=== PATIENT | male | born 1950 | race Caucasian/White ===

== ENCOUNTER 2020-03-12 09:49 | Outpatient (CLI) | payer MEDICARE, SELFPAY ==
--- NOTE | ~2020-03-12 | US_ITS ---
EXAMINATION: US thyroid DATE: 03/12/2020 10:35 INDICATION: Thyroid nodule. TECHNIQUE: Multiple ultrasound images of the thyroid were obtained. COMPARISON: Ultrasound 03/15/2019 FINDINGS: The right thyroid lobe measures 4.5 x 1.7 x 2.1 cm. The left thyroid lobe measures 3.9 x 1.4 x 1.3 c m. In the left thyroid lobe, there is a 5 mm solid, hypoechoic, qwrjs-cffs-brkp nodule with ill-defi olu margin without echogenic foci (TI-RADS TR4). In the right thyroid lobe, there is a 1.8 cm mixed c ystic and solid, hyperechoic, ffcun-xmvu-qkxh nodule with smooth margin without echogenic foci (TI-RA DS TR2). IMPRESSION: 1. Stable thyroid nodules, likely not clinically significant. No follow-up is needed. Reviewed, dictated and finalized at location A. IMPRESSION: 1. Stable thyroid nodules, likely not clinically significant. No follow-up is n eeded.
== END 2020-03-12 09:50 | disposition home or self-care (01) ==
PROVIDERS: PCP Internal Medicine; Visit Provider Internal Medicine
DX: E04.2 Nontoxic multinodular goiter (principal)
CPT/HCPCS: 76536

== ENCOUNTER → 2021-03-09 09:02 | Outpatient (CLI) | payer MEDICARE, SELFPAY ==
--- NOTE | ~2021-03-09 | MR_ITS ---
EXAMINATION: MR brain IAC wo/w con DATE: 03/09/2021 10:11 INDICATION: Dizziness. TECHNIQUE: Magnetic resonance imaging (MRI) of the brain, brainstem, and internal auditory canals was performed without and with 15 mL MultiHance intravenous contrast. Sequences included sagittal and ax ial T1-weighted FSE, axial diffusion-weighted FS EPI, axial T2*-weighted GRE, axial T2-weighted FLAIR Propeller, axial T2-weighted Propeller, small wgpyc-jv-stxl coronal FIESTA, small fcdup-tf-dulc lópez nal T1-weighted FSE, and small xamdn-sy-djdw axial T1-weighted SPGR. Postcontrast sequences included axial T1-weighted FSE, small tonwe-sn-qous coronal T1-weighted FSE, and small tzysg-ii-xxqz axial T1- weighted SPGR. Apparent diffusion coefficient (ADC) maps were created. COMPARISON: CT neck 11/29/2016 FINDINGS: There are scattered areas of nonspecific increased T2-weighted signal intensity in the cere bral white matter, which is within normal limits for the patient's age. There are small areas of cys tic encephalomalacia in the deluna radiata of the frontal lobes bilaterally. There is no intracranial hemorrhage, acute infarction, or abnormal intracranial mass lesion. The ventricles are normal in siz e. The internal auditory canals and inner and middle ears are normal. The mastoid air cells are emelina l. There is mucosal thickening in the right frontal and right anterior ethmoid sinuses. The orbits ar e normal. IMPRESSION: 1. Small areas of chronic cystic encephalomalacia in the deluna radiata of the frontal lobes gal lindsey. Reviewed, dictated and finalized at location A. IMPRESSION: 1. Small areas of chronic cystic encephalomalacia in the deluna radiata of the frontal lobes bilaterally.
[2021-03-09 09:37] LABS: Estimated Glomerular Filt Rate 60
== END ==
PROVIDERS: PCP Internal Medicine; Visit Provider Internal Medicine
DX: R42 Dizziness and giddiness (principal)
CPT/HCPCS: 70553; A9577

== ENCOUNTER → 2021-07-31 16:22 | Outpatient (CLI) | payer MEDICARE, SELFPAY ==
--- NOTE | ~2021-07-31 | XR_ITS ---
XR chest 2V DATE: 07/31/2021 17:03 INDICATION: Chronic cough TECHNIQUE: 2 views COMPARISON: January 04, 2019 PA and lateral chest FINDINGS: Heart size is within upper normal range. No hilar or mediastinal enlargement. No pulmonary infiltrate or consolidation, pleural effusion or pulmonary vascular congestion or pneumothorax. Osteopenia. IMPRESSION: No active cardiopulmonary disease Reviewed, dictated and finalized at location A.
== END ==
PROVIDERS: PCP Internal Medicine; Visit Provider Internal Medicine
DX: R05 Cough (principal)
CPT/HCPCS: 71046

== ENCOUNTER 2022-03-24 12:45 | Outpatient (CLI) | payer MEDICARE, SELFPAY ==
--- NOTE | 2022-03-24 16:31 | WPDPFTINT ---
PFT Procedure Performed PFT Procedure Performed Spirometry with Pre/Post Bronchodilator Plethysmography (Lung Vol) Diffusing Cap (DLCO) Flow Vol Loop PFT Interpretation This is a pulmonary function test with pre and post-bronchodilator spirometry, plethysmography and diffusing capacity. The test was performed and results interpreted in accordance with the 2019 and 2005 ATS/ERS Task Force guidelines respectively using the Global Lung Function Initiative-2012 reference equations. Patient demonstrated good effort and cooperation. Reproducibility criteria were met. The quality of the pre bronchodilator spirometry maneuver was Grade A and post bronchodilator spirometry maneuver was Grade A. Findings: Spirometry: The contour the inspiratory and expiratory flow tracing are normal. The pre bronchodilator FVC is 4.21 L, 107% predicted. The pre bronchodilator FEV1 is 3.31 L, 111% predicted. The pre bronchodilator FEV1: FVC ratio 79%. The post bronchodilator FVC is 4.06 L, representing a 4% decrease. The post bronchodilator FEV1 is 3.37 L, representing a 2% increase. The post bronchodilator FEV1: FVC ratio was 83%. Plethysmography: The total lung capacity 7.18 L, 108% predicted. The functional residual capacity is 4.35 L, 124% predicted. The residual volume is 2.97 L, 126% predicted. Diffusing capacity: The diffusion capacity unadjusted for hemoglobin and carboxyhemoglobin is 27.7, 111% predicted. Diffusing capacity adjusted for alveolar volume is 4.95, 123% predicted. Impression: The spirometry is normal without evidence of an obstructive abnormality. There is no significant improvement after inhaling a single dose of albuterol. The lung volumes are normal. The diffusing capacity is normal. There are no prior studies for comparison
== END 2022-03-24 12:46 | disposition home or self-care (01) ==
PROVIDERS: PCP Internal Medicine; Visit Provider Internal Medicine
DX: R05.9 Cough, unspecified (principal)
CPT/HCPCS: 94060; 94726; 94729

== ENCOUNTER 2022-04-19 13:33 | Outpatient (CLI) | payer MEDICARE, SELFPAY ==
--- NOTE | 2022-04-19 13:41 | ECG_ITS ---
Measurements Intervals [place] Rate: 68 P: 30 AK: 166 QRS: -1 QRSD: 108 T: 22 QT: 405 QTc: 431 Interpretive Statements SINUS RHYTHM WITH OCCASIONAL VENTRICULAR PREMATURE COMPLEXES NO PREVIOUS ECG AVAILABLE FOR COMPARISON Electronically Signed On 04-19-2022 15:39:14 CDT by Sterling Dawkins MD
[2022-04-19 14:17] LABS: Anion Gap 5 mmol/L (8-16); Blood Urea Nitrogen 21 mg/dL (9-20); Calcium 8.9 mg/dL (8.4-10.2); Carbon Dioxide 32 mmol/L (22-30); Chloride 100 mmol/L (98-107); Estimated Glomerular Filt Rate > 60; Glucose 116 mg/dL (65-110); Potassium 3.6 mmol/L (3.4-5.0); Sodium 137 mmol/L (137-145)
== END 2022-04-19 13:34 | disposition home or self-care (01) ==
PROVIDERS: Anesthesiology; PCP Internal Medicine; Visit Provider Urology
DX: Z51.81 Encounter for therapeutic drug level monitoring (principal); I10 Essential (primary) hypertension; Z01.818 Encounter for other preprocedural examination
CPT/HCPCS: 36415; 80048; 93005

== ENCOUNTER 2022-04-21 00:03 | Day surgery (SDC) | payer MEDICARE, SELFPAY ==
[2022-04-07 10:38] VITALS: BMI 25.4
--- NOTE | 2022-04-07 11:01 | PC.NURSE ---
Report to the Outpatient Waiting Room, entrance under the green pavilion located off [facility], at time __10:00AM on date __04/21/22 . OR Time: __12:00PM . - You and your visitor will be asked a series of questions to screen for COVID 19 for your protection. - Only one visitor is allowed at this time. - The patient visitor is requested to leave or wait in car when not with patient. - A mask is required within the hospital. Patients may have clear liquids (water, carbonated beverages, clear teas, apple juice) until 3 hours prior to surgery with a maximum of 20 ounces. - No food from midnight until time of surgery - Infants may have breast milk until 4 hours before surgery, infant formula 6 hours prior to surgery. - Children will be allowed to drink immediately following surgery. If applicable, please bring a bottle or sippy cup to assist with drinking. Juice, water, soda, and popsicles are readily available. For infants on formula, please bring formula the day of surgery. Pacifiers are allowed. Take the following medications with a SIP of water the morning of surgery: ____NONE Medications to discontinue per physician ___HOLD ALL VITAMINS/SUPPLEMENTS 7 DAYS PRE-OP PER DR LOZA Date to take last dose__04/14/22 Please no make-up, nail sinhala, hairspray, perfume, deodorant, or body powder the day of surgery. No jewelry (including any body piercings) or valuables the day of surgery, leave them at home. Please take a shower or bath the night before, or the morning of, surgery with an antibacterial soap. Wear comfortable, loose fitting clothing. Children are encouraged to wear pajamas. - Jewelry must be removed prior to entering the operating room. Rings and piercings that are not removed may be cut off. - The hospital will not accept responsibility for valuables. - Please leave all valuables, including medications, at home the day of surgery. If you are going home after surgery, a licensed sales route driver must drive you home. - NO public transportation without another adult. - We recommend that an adult stay with you for 24 hours following discharge. - We also recommend that you do not drive, make important decision, drink alcoholic beverages, or take any drugs that were not prescribed by your health care provider for at least 24 hours after your discharge time. For Pediatric surgeries, we recommend two adults accompany the child home (only one inside the building at this time). Follow any additional instructions given to you from your surgeon. If you or anyone in your household have experienced Covid symptoms in the past week, please notify your surgeon or the nurse liaison at the phone number below for possible testing. Telephone instructions given to __PATIENT and asked if any additional questions and then verbalized understanding. Patient advised to call surgeon office or pre surgery nurse liaison [phone] if any additional questions.
--- NOTE | 2022-04-20 13:42 | WPDANESEPPF ---
Anes - Initial Pre Proc Eval Procedure: Operation Date: 04/21/22 12:00 Proposed Procedures p Urolift - Santos Rose MD Date/Time: 04/20/22 13:42 Surgeon: Santos Rose MD Pre Op Diagnosis: BPH Patient Data Age: 71 Gender: M Height: 1.73 m Weight: 76 kg Allergies Allergy/AdvReac Type Severity Reaction Status Date / Time No Known Allergies Allergy Unverified 04/07/22 10:37 Home Medications Medication Instructions Recorded Confirmed Type calcium carbonate 500 mg calcium 1,000 mg PO DAILY 04/07/22 04/07/22 History (1,250 mg) chewable tablet (Calcium 500) guaifenesin 1,200 mg 1,200 mg PO BID 04/07/22 04/07/22 History tablet,extended release,12 hr hydrochlorothiazide 25 mg tablet 25 mg PO QAM 04/07/22 04/07/22 History lisinopril 20 mg tablet 20 mg PO BID 04/07/22 04/07/22 History magnesium 250 mg tablet 250 mg PO DAILY 04/07/22 04/07/22 History omega-3 fatty acids-vitamin E 2 cap PO QAM 04/07/22 04/07/22 History 1,000 mg capsule rosuvastatin 5 mg tablet 5 mg PO HS 04/07/22 04/07/22 History testosterone 20.25 mg/1.25 gram 3 pump topical DAILY 04/07/22 04/07/22 History (1.62 %) transdermal gel pump zolpidem 5 mg tablet 2.5 mg PO HS PRN Insomnia 04/07/22 04/07/22 History Patient hx anesthesia problems: none Family hx anesthesia problems: none Results Review: All pre-operative results and documents have been reviewed as part of the pre-operative evaluation. [facility] Past Medical History Medical History (Updated 04/20/22 @ 13:44 by Anthony Ruvalcaba MD) Benign essential hypertension BPH (benign prostatic hyperplasia) HTN (hypertension) Hypercholesterolemia JENNIFER (obstructive sleep apnea) PVCs (premature ventricular contractions) Family History Family History (Updated 07/11/14 @ 07:13 by DOCTOR UNKNOWN) Mother Hypertension Father Hypertension Malignant neoplasm of prostate Social History Social History Smoking status: Never smoker Smoking end date: 11/14/69 Alcohol intake: current Drinks per week: 6 Substance use: never Living arrangements: with family Additional living arrangements comments: Spiritual care concerns: No Anes - Eval Final PreProcedure Day of Procedure 04/20/22 13:42 Patient weight: normal Heart: regular rate and rhythm Lungs: clear to auscultation and normal air movement Airway: Mallampati scale class II Neurological: alert and oriented Last oral intake: >/= 8 hours ASA classification: III Emergent: no Anesthetic plan: proceed Anesthesia type and monitoring: general GIVS and LMA Results Review: All pre-operative results and documents have been reviewed as part of the pre-operative evaluation. Informed Consent: The patient's anesthetic plan and its attendant risks and benefits were discussed with the patient/family/POA. Questions were solicited and answers provided to the satisfaction of the patient/family/POA.
[2022-04-21] MEDS: ACETAMINOPHEN 500 MG TABLET 1000 MG PO (10:45)
[2022-04-21 10:50] VITALS: BP 126/78; PULSE 68; RESP 14; TEMP 36.3; O2SAT 100
[2022-04-21] MEDS: LACTATED RINGERS 1,000 ML 30 ML IV CONT ×2 (10:55→13:50)
--- NOTE | 2022-04-21 12:18 | PM.IMHP ---
H&P: HPI History of Present Illness Date/Time: 04/21/22 12:18 Chief Complaint: BPH Review of Systems Review of Systems: no significant [facility] Past Medical History Medical History (Updated 04/20/22 @ 13:44 by Anthony Ruvalcaba MD) Benign essential hypertension BPH (benign prostatic hyperplasia) HTN (hypertension) Hypercholesterolemia JENNIFER (obstructive sleep apnea) PVCs (premature ventricular contractions) Family History Family History (Updated 07/11/14 @ 07:13 by DOCTOR UNKNOWN) Mother Hypertension Father Hypertension Malignant neoplasm of prostate Social History Social History Smoking status: Never smoker Smoking end date: 11/14/69 Alcohol intake: current Drinks per week: 6 Substance use: never Living arrangements: with family Additional living arrangements comments: Spiritual care concerns: No Meds Home Medications and Allergies Home Medications Medication Instructions Recorded Confirmed Type calcium carbonate 500 mg calcium 1,000 mg PO DAILY 04/07/22 04/07/22 History (1,250 mg) chewable tablet (Calcium 500) guaifenesin 1,200 mg 1,200 mg PO BID 04/07/22 04/07/22 History tablet,extended release,12 hr hydrochlorothiazide 25 mg tablet 25 mg PO QAM 04/07/22 04/07/22 History lisinopril 20 mg tablet 20 mg PO BID 04/07/22 04/07/22 History magnesium 250 mg tablet 250 mg PO DAILY 04/07/22 04/07/22 History omega-3 fatty acids-vitamin E 2 cap PO QAM 04/07/22 04/07/22 History 1,000 mg capsule rosuvastatin 5 mg tablet 5 mg PO HS 04/07/22 04/07/22 History testosterone 20.25 mg/1.25 gram 3 pump topical DAILY 04/07/22 04/07/22 History (1.62 %) transdermal gel pump zolpidem 5 mg tablet 2.5 mg PO HS PRN Insomnia 04/07/22 04/07/22 History Allergies Allergy/AdvReac Type Severity Reaction Status Date / Time No Known Allergies Allergy Unverified 04/07/22 10:37 Vital Signs Vital Signs - 24 hr 04/21/22 10:50 Temperature 36.3 C L Pulse Rate 68 Respiratory Rate 14 Blood Pressure 126/78 Pulse Oximetry 100 Oxygen Delivery Room Air Exam Narrative: awake, alert, no distress unlabored breathing Assessment and Plan Assessment and plan (1) BPH (benign prostatic hyperplasia): Code(s): N40.0 - Benign prostatic hyperplasia without lower urinary tract symptoms Status: Acute Plan Plan Urolift. Risks, benefits, alternatives discussed. pt agrees to proceed
--- NOTE | 2022-04-21 12:19 | WPDHPUPDATE1 ---
History and Physical Update Update Date/Time: 04/21/22 12:19 History and Physical has been reviewed, including an updated exam of the patient. There are NO changes in the patient's condition. Risks, benefits, and alternatives have been discussed and questions answered. Patient agrees to proceed with procedure.
[2022-04-21] MEDS: ceFAZolin 2 GM/D5W 50 ML 2 GM/50 ML BAG IVPB (12:23)
--- NOTE | 2022-04-21 13:12 | W.PM.PROC2 ---
Procedure Note - Detailed Date of Procedure 04/21/22 Pre-op Diagnosis BPH Post-op Diagnosis Same Procedure Performed Urolift Surgeon Santos Rose MD Description of Procedure Informed consent was obtained. Patient taken the operating. Was given preoperative IV antibiotics. He was induced with a MAC anesthetic. A 20F cystoscope was inserted into the bladder. The cystoscopy bridge was replaced with a UroLift delivery device. The first treatment site was the patient's left side approximately 1.5cm distal to the bladder neck. The distal tip of the delivery device was then angled laterally approximately 20 degrees at this position to compress the lateral lobe. The trigger was pulled, thereby deploying a needle containing the implant through the prostate. The needle was then retracted, allowing one end of the implant to be delivered to the capsular surface of the prostate. The implant was then tensioned to assure capsular seating and removal of slack monofilament. The device was then angled back toward midline and slowly advanced proximally until cystoscopic verification of the monofilament being centered in the delivery bay. The urethral end piece was then affixed to the monofilament thereby tailoring the size of the implant. Excess filament was then severed. The delivery device was then re-advanced into the bladder. The delivery device was then replaced with cystoscope and bridge and the implant location and opening effect was confirmed cystoscopically. The same procedure was then repeated on the right side, and two additional implants were delivered just proximal to the veru montanum, again one on right and one on left side of the prostate, following the same technique. One attempt to place implant on the patient's left side resulted in a bone strike, the implant was not deployed. After the 4 initial implants were placed, then revealed a persistent area of obstruction, on the patient's right apex. One additional implant was delivered in the right side just proximal to the Carolee prostate. A final cystoscopy was conducted first to inspect thelocation and state of each implant and second, to confirm the presence of a continuous anterior channel was present through the prostatic urethra with irrigation flow turned off. The bladder was then filled with 150 cc irrigation fluid to assist the patient in void trial after the procedure. The patient was taken to recovery room stable condition. Pathology None sent Complications No immediate complications Condition Stable Disposition PACU
[2022-04-21 13:23] VITALS: BP 113/69; PULSE 60; RESP 16; O2SAT 97
[2022-04-21 13:50] VITALS: BP 169/78; PULSE 50; RESP 16
[2022-04-21 14:20] VITALS: BP 169/82; PULSE 57; RESP 16
[2022-04-21 14:50] VITALS: BP 146/71; PULSE 56; RESP 16
== END 2022-04-21 15:04 | disposition home or self-care (01) ==
PROVIDERS: PCP Internal Medicine; Visit Provider Urology
PROC: 0T7D8DZ Dilation of Urethra with Intraluminal Device, Via Natural or Artificial Opening Endoscopic (ICD-10-PCS; CPT 52441; principal; 2022-04-21 12:00)
DX: N40.1 Benign prostatic hyperplasia with lower urinary tract symptoms (principal); I10 Essential (primary) hypertension; E78.00 Pure hypercholesterolemia, unspecified; G47.33 Obstructive sleep apnea (adult) (pediatric); I49.3 Ventricular premature depolarization
CPT/HCPCS: C9740; 36415; 51702; 80048; 81001; 87086; 93005; 99283; A9270; J0690; J2704; J3010; J7120; L8699

== ENCOUNTER 2022-04-21 18:01 | Emergency (ER) | payer MEDICARE, SELFPAY ==
[2022-04-21 18:05] VITALS: BP 165/93; PULSE 63; RESP 18; TEMP 36.1; O2SAT 99
--- NOTE | 2022-04-21 18:46 | ED.MALEGU ---
HPI - Male Genitourinary General Chief complaint: Urogenital-Male Stated complaint: unable to urinate Time Seen by Provider: 04/21/22 18:21 Source: patient Mode of arrival: ambulatory Limitations: no limitations History of Present Illness HPI Narrative: This is a 71-year-old male that presents to the emergency department for urinary retention. Reports he had a procedure this morning for BPH. He was able to urinate a little after the procedure. Since he got home he has not been able to urinate at all. Dr. Rose prompted him to be seen in the ER for likely William catheter placement. Patient has had William placed and is feeling much better. Denies fever or vomiting. Related Data Home Medications Medication Instructions Recorded Confirmed calcium carbonate 500 mg calcium 1,000 mg PO DAILY 04/07/22 04/07/22 (1,250 mg) chewable tablet (Calcium 500) guaifenesin 1,200 mg 1,200 mg PO BID 04/07/22 04/07/22 tablet,extended release,12 hr hydrochlorothiazide 25 mg tablet 25 mg PO QAM 04/07/22 04/07/22 lisinopril 20 mg tablet 20 mg PO BID 04/07/22 04/07/22 magnesium 250 mg tablet 250 mg PO DAILY 04/07/22 04/07/22 omega-3 fatty acids-vitamin E 2 cap PO QAM 04/07/22 04/07/22 1,000 mg capsule rosuvastatin 5 mg tablet 5 mg PO HS 04/07/22 04/07/22 testosterone 20.25 mg/1.25 gram 3 pump topical DAILY 04/07/22 04/07/22 (1.62 %) transdermal gel pump zolpidem 5 mg tablet 2.5 mg PO HS PRN Insomnia 04/07/22 04/07/22 Allergies Allergy/AdvReac Type Severity Reaction Status Date / Time No Known Allergies Allergy Verified 04/21/22 18:58 Review of Systems Review of Systems: CONSTITUTIONAL: Denies fever CARDIOVASCULAR: Denies chest pain, palpitations RESPIRATORY: Denies dyspnea. GENITOURINARY: Reports hematuria. Denies dysuria All systems reviewed & are unremarkable except as noted in HPI and below PMFSH Past Medical History Medical History (Updated 04/21/22 @ 19:27 by Annemarie Padron PA-C) Benign essential hypertension BPH (benign prostatic hyperplasia) HTN (hypertension) Hypercholesterolemia JENNIFER (obstructive sleep apnea) PVCs (premature ventricular contractions) Family History Family History (Updated 07/11/14 @ 07:13 by DOCTOR UNKNOWN) Mother Hypertension Father Hypertension Malignant neoplasm of prostate Social History Social History Smoking status: Never smoker Smoking end date: 11/14/69 Alcohol intake: current Drinks per week: 6 Substance use: never Additional living arrangements comments: Spiritual care concerns: No Exam Narrative: GENERAL: Well-appearing, well-nourished, and in no acute distress. HEAD: Normocephalic, atraumatic. EYES: EOMI. CHEST: Clear to auscultation. No respiratory distress. No wheezes rales or rhonchi HEART: Regular rate and rhythm. No murmur heard. Normal peripheral pulses. ABDOMEN: Soft, nontender, nondistended, normal active bowel sounds. EXTREMITIES: Normal range of motion. No edema. SKIN: Warm, dry, no rash. NEURO: No focal deficits. Alert and oriented x3. PSYCH: Normal mood and affect Course Consultations Consultation #1: I spoke with Dr. Rose about patient who reports he should follow-up in clinic early next week. Patient states urine is draining and is noted to be bloody, which Dr. Rose said is to be expected. Date: 04/21/22 Vital Signs Vital signs: Vital Signs Temperature 97.0 F L 04/21/22 18:05 Pulse Rate 63 04/21/22 18:05 Respiratory Rate 18 04/21/22 18:05 Blood Pressure 165/93 H 04/21/22 18:05 Pulse Oximetry 99 04/21/22 18:05 Oxygen Delivery Room Air 04/21/22 18:05 Temperature 97.0 F L 04/21/22 18:05 Pulse Rate 53 L 04/21/22 19:52 Respiratory Rate 16 04/21/22 19:52 Blood Pressure 129/74 04/21/22 19:52 Pulse Oximetry 100 04/21/22 19:52 Oxygen Delivery Room Air 04/21/22 18:05 MDM - Male Genitourinary MDM Narrative Medical decision making narrative: Patient pres
[2022-04-21 19:12] LABS: RBC Urine >75 /hpf (0-2); WBC Urine >75 /hpf
[2022-04-21 19:14] LABS: Appearance Urine Cloudy (Clear); Color Urine Red (Yellow); Glucose Urine UA Negative (Negative); Protein Urine 1+ mg/dL (Negative); Specific Grav Ur 1.015 (1.001-1.035)
[2022-04-21 19:15] LABS: Bilirubin Urine Negative (Negative); Blood Urine 3+ (Negative); Ketones Urine Negative (Negative); Nitrate Urine Negative (Negative); Urobilinogen Urine 0.2 mg/dL (<2.0)
[2022-04-21 19:16] LABS: Add Urine Microscopic? YES; Leukocyte Esterase Ur 2+ LEU/UL (Negative)
--- NOTE | 2022-04-21 19:16 | PC.NURSE ---
Patient report given to ALE Trujillo. All questions answered and care of patient transferred.
[2022-04-21 19:19] VITALS: BP 141/83; PULSE 59; RESP 16; O2SAT 98
--- NOTE | 2022-04-21 19:19 | PC.NURSE ---
Report received from Mavis RN and care of pt assumed at this time.
[2022-04-21 19:52] VITALS: BP 129/74; PULSE 53; RESP 16; O2SAT 100
== END 2022-04-21 19:59 | disposition home or self-care (01) ==
PROVIDERS: Physician Assistant; Emergency Provider General Practice; PCP Urology
DX: N99.89 Other postprocedural complications and disorders of genitourinary system (principal); R33.8 Other retention of urine; I10 Essential (primary) hypertension; E78.00 Pure hypercholesterolemia, unspecified; G47.33 Obstructive sleep apnea (adult) (pediatric); Z87.891 Personal history of nicotine dependence
CPT/HCPCS: 51702; 81001; 87086; 99283

== ENCOUNTER → 2022-10-06 14:30 | Outpatient (CLI) | payer MEDICARE, SELFPAY ==
--- NOTE | ~2022-10-06 | DEXA_ITS ---
Bone Density Report Name: POLA CHILEL Age: 72 Sex: Male Ethnicity: White Date of : 1950 Indication: screening for osteoporosis; prior fracture; Referring Provider: SHENG NGUYEN Study: Bone densitometry was performed. Exam Date: October 06, 2022 Accession number: [id number] Bone Density: Region BMD T-score Z-score Classification AP Spine (L1-L4) 0.849 -2.2 -1.2 Osteopenia Femoral Neck (Left) 0.652 -2.0 -0.8 Osteopenia Total Hip (Left) 0.765 -1.8 -1.0 Osteopenia Femoral Neck (Right) 0.670 -1.9 -0.7 Osteopenia Total Hip (Right) 0.798 -1.6 -0.8 Osteopenia Total Hip Mean 0.782 -1.7 -0.9 Osteopenia World Health Organization criteria for BMD impression classify patients as: Normal (T-score at or above -1.0), Osteopenia (T-score between -1.0 and -2.5), or Osteoporosis (T-score at or below -2.5). 10-year Fracture Risk(1): Major Osteoporotic Fracture 13% Hip Fracture 3.7% Reported Risk Factors: [place] (), Neck BMD=0.652, BMI=25.7, previous fracture (1) FRAX(R) Version 3.08. Fracture probability calculated for an untreated patient. Fracture probability may be lower if the patient has received treatment. Clinical Information Provided by Patient: Has had a low trauma fracture Has used the following medications: Vitamin D, Calcium Patient maximum height was 68 Does not regularly consume dairy products Drinks caffeinated beverages Impression: The patient has low bone mass, based on the Total Spine T-score. The patient has an estimated ten-year risk of hip fracture of 3.7% and an estimated ten-year risk of major fracture of 13%, based on the WHO FRAX algorithm. The patient has risk factors, including: previous fracture. Discussion: BONE DENSITY IS LOW AT ONE OR MORE SKELETAL SITES. THE PATIENT'S BMD AND CLINICAL RISK FACTORS CONTRIBUTE TO THIS PATIENT'S INCREASED RISK OF FRACTURE. This patient's lowest T-score is low at one or more skeletal sites. It meets the World Health Organization's (WHO) criteria for ?low bone mass? (T-score between -1.0 and -2.5). The patient's 10-year risk of hip fracture as calculated by FRAX exceeds the threshold where pharmacological therapy is recommended by the National Osteoporosis Foundation (NOF). However, all treatment decisions require clinical judgment and consideration of individual patient factors, including patient preferences, comorbidities, previous drug use, risk factors not captured in the FRAX model (e.g., frailty, falls, vitamin D deficiency, increased bone turnover, interval significant decline in bone density) and possible under or overestimation of fracture risk by FRAX. The patient should follow a healthful lifestyle (good nutrition with adequate calcium and vitamin D, and appropriate weight-bearing exercise). Follow-Up: Consider repeating this
== END ==
PROVIDERS: PCP Internal Medicine; Visit Provider Internal Medicine
DX: M85.88 Other specified disorders of bone density and structure, other site (principal); M85.851 Other specified disorders of bone density and structure, right thigh; M85.852 Other specified disorders of bone density and structure, left thigh
CPT/HCPCS: 77080

== ENCOUNTER 2023-03-17 12:45 | Outpatient (CLI) | payer MEDICARE, SELFPAY ==
--- NOTE | 2023-03-17 | ECHO_ITS ---
Patient Info Name: Uziel Haji Age: 72 years : 1950 Gender: Male Ht: 68 in Wt: 164 lbs BSA: 1.90 m2 HR: 68 bpm BP: 142 / 82 mmHg Heart Rhythm: Sinus Rhythm Technical Quality: Good Exam Date: 03/17/2023 1:21 PM Exam Location: [facility] Patient Status: Outpatient Admit Date: 03/17/2023 Staff Ordering Physician: Saima Sotelo MD Electrical Intern: Elif Fischer RDCS Attending Provider: Saima Sotelo MD Referring Physician: Ashleigh DHALIWAL; Exam Type: CA echo doppler color flow Study Info Indications - ATRIAL BIGEMINY Complete two-dimensional, color flow and Doppler transthoracic echocardiogram is performed. Summary 1. Complete two-dimensional, color flow and Doppler transthoracic echocardiogram is performed. 2. Left ventricular chamber dimension is mildly enlarged. 3. Left ventricular systolic function is normal, estimated at 55-60%. 4. There is mild concentric increased left ventricular wall thickness. 5. The left ventricular diastolic function is grade II diastolic dysfunction. 6. E/e' 10 is mildly elevated. 7. Left atrial chamber dimension is mildly enlarged. 8. Right atrial chamber dimension is mildly enlarged. 9. There is mild mitral valve regurgitation. 10. There is trace tricuspid valve regurgitation. 11. No pulmonary hypertension, estimated pulmonary arterial systolic pressure is 32 mmHg. 12. There is trace pulmonic regurgitation. 13. Normal inferior vena cava with <50% collapse upon inspiration consistent with elevated right atrial pressure, 10 mmHg. Left Ventricle E/e' 10 is mildly elevated. Left ventricular chamber dimension is mildly enlarged. Left ventricular systolic function is normal, estimated at 55-60%. There is mild concentric increased left ventricular wall thickness. The left ventricular diastolic function is grade II diastolic dysfunction. Right Ventricle Right ventricular systolic function is normal and with normal TAPSE 2.2 cm. Right ventricular chamber dimension is normal. Left Atria Left atrial chamber dimension is mildly enlarged. Right Atria Right atrial chamber dimension is mildly enlarged. Aortic Valve The aortic valve is trileaflet. There is no aortic valve stenosis. There is no aortic valve regurgitation. Pulmonic Valve There is trace pulmonic regurgitation. Mitral Valve There is no mitral valve stenosis. There is mild mitral valve regurgitation. Tricuspid Valve There is trace tricuspid valve regurgitation. No pulmonary hypertension, estimated pulmonary arterial systolic pressure is 32 mmHg. Pericardium/Pleural There is no pericardial effusion. Inferior Vena Cava Normal inferior vena cava with <50% collapse upon inspiration consistent with elevated right atrial pressure, 10 mmHg. Aorta The aortic root size at the sinus of Valsalva is normal. Left Ventricular Outflow Tract Name Value Normal LVOT 2D LVOT Diameter 2.1 cm LVOT Doppler LVOT Peak Gradient 3 mmHg LVOT Mean Gradient 1 mmHg LVOT VTI 24 cm LVOT VTI/AV VTI Ratio 0.7 LVOT Stroke Volume 83 ml LVOT CO
== END 2023-03-17 12:46 | disposition home or self-care (01) ==
PROVIDERS: PCP Internal Medicine; Visit Provider Internal Medicine
DX: I49.8 Other specified cardiac arrhythmias (principal); I49.3 Ventricular premature depolarization; I34.0 Nonrheumatic mitral (valve) insufficiency
CPT/HCPCS: 93306

== ENCOUNTER → 2023-03-18 09:18 | Outpatient (CLI) | payer MEDICARE, SELFPAY ==
--- NOTE | ~2023-03-18 | CT_ITS ---
CT scan of the Neck Technique: 2.5 mm axial scans were obtained through the neck after intravenous administration of 75 c c Omnipaque 350. Coronal and sagittal reconstructions of the neck were obtained. Dose reduction techn ique was used on this scan by utilizing automated exposure control and iterative reconstruction techn ique. The dose-length product (DLP) was 385.79 mGy-cm. Clinical History: GERD, neck pain COMPARISON: 11/29/2016 Findings: Hypodense right thyroid lobe nodule is increased in size since 2017, now measuring 2.5 cm i n diameter. There is no evidence of any significant cervical lymphadenopathy. Several small, nonenlarged jugulo- digastric and posterior cervical lymph nodes are noted bilaterally. Parapharyngeal spaces appear norm al bilaterally. The parotid and submandibular glands appear normal. The pharyngeal mucosal spaces appear normal. No soft tissue masses are seen in the neck. The thyroid gland appears normal. Images of the lung apices reveal no abnormalities. Impression: 2.5 cm hypodense right thyroid lobe nodule, as detailed above. Based on prior thyroid ultrasound from 03/12/2020, this is consistent with a benign nodule. Reviewed, dictated and finalized at [facility]. Impression: 2.5 cm hypodense right thyroid lobe nodule, as detailed above. Based on prior t hyroid ultrasound from 03/12/2020, this is consistent with a benign nodule.
[2023-03-18 09:39] LABS: Estimated Glomerular Filt Rate > 60
== END ==
PROVIDERS: PCP Internal Medicine; Visit Provider Otolaryngology
DX: K21.9 Gastro-esophageal reflux disease without esophagitis (principal)
CPT/HCPCS: 70491; Q9967

== ENCOUNTER → 2023-04-18 10:50 | Outpatient (CLI) | payer MEDICARE, SELFPAY ==
--- NOTE | ~2023-04-18 | CT_ITS ---
EXAMINATION: CT IAC/mastoids BI wo con DATE: 04/18/2023 11:11 INDICATION: Right-sided mastoiditis. TECHNIQUE: Computed tomography (CT) of the temporal bones was performed without intravenous contrast. Automated exposure control and iterative reconstruction technique were employed. The dose-length pro duct was 285.41 mGy-cm. COMPARISON: Brain MRI 03/09/2021, neck CT 03/18/2023 FINDINGS: RIGHT TEMPORAL BONE: The internal auditory canal, cochlea, vestibule, semicircular canals, the cerebral aqueduct, jugular bulb, and carotid canal are normal. There is material in the tympanic cavity including adjacent to th e ossicles, at the cochlear promontory, and in Prussak space. There are erosions of scutum. There is thickening of the tympanic membrane. There is a small right mastoid effusion. LEFT TEMPORAL BONE: The internal auditory canal, cochlea, vestibule, semicircular canals, vestibular aqueduct, carotid bu lb, carotid canal, facial nerve course, and ossicles are normal. There is trace material in Prussak s pace. There are no erosions of bone. The mastoid air cells are normal. The external auditory canal is normal. IMPRESSION: 1. Material in right tympanic cavity with erosions of scutum, consistent with chronic otitis media ve rsus cholesteatoma. Reviewed, dictated and finalized at location A. IMPRESSION: 1. Material in right tympanic cavity with erosions of scutum, consistent with c hronic otitis media versus cholesteatoma.
== END ==
PROVIDERS: PCP Internal Medicine
DX: H72.91 Unspecified perforation of tympanic membrane, right ear (principal); H70.91 Unspecified mastoiditis, right ear
CPT/HCPCS: 70480

== ENCOUNTER 2024-11-27 11:43 | Outpatient (CLI) | payer MEDICARE, SELFPAY ==
--- NOTE | ~2024-11-27 | DEXA_ITS ---
Bone Density Report Name: POLA CHILEL Age: 74 Sex: Male Ethnicity: White Date of : 1950 Indication: screening for osteoporosis; Referring Provider: SHENG NGUYEN Study: Bone densitometry was performed. Exam Date: November 27, 2024 Accession number: [id number] Bone Density: Region BMD T-score Z-score Classification AP Spine(L1-L4) 0.910 -1.6 -0.6 Osteopenia Femoral Neck (Left) 0.711 -1.6 -0.3 Osteopenia Total Hip (Left) 0.888 -1.0 -0.2 Normal Femoral Neck (Right) 0.698 -1.7 -0.4 Osteopenia Total Hip (Right) 0.855 -1.2 -0.4 Osteopenia Femoral Neck Mean 0.704 -1.7 -0.3 Osteopenia Total Hip Mean 0.871 -1.1 -0.3 Osteopenia World Health Organization criteria for BMD impression classify patients as: Normal (T-score at or above -1.0), Osteopenia (T-score between -1.0 and -2.5), or Osteoporosis (T-score at or below -2.5). 10-year Fracture Risk(1): Major Osteoporotic Fracture 7.2% Hip Fracture 2.1% Reported Risk Factors: [place] (), Neck BMD=0.698, BMI=25.8 (1) FRAX(R) Version 3.08. Fracture probability calculated for an untreated patient. Fracture probability may be lower if the patient has received treatment. Clinical Information Provided by Patient: Has used the following medications: Vitamin D, Calcium Patient maximum height was 68 Onset of menses at age 1 Number of children 0 Impression: The patient has low bone mass, based on the Right Femoral Neck T-score. Discussion: BONE DENSITY IS LOW AT ONE OR MORE SKELETAL SITES. This patient's lowest T-score is low at one or more skeletal sites. It meets the World Health Organization's (WHO) criteria for ?low bone mass? (T-score between -1.0 and -2.5). The patient's 10-year risk of fracture as calculated by FRAX is less than the threshold where pharmacological therapy is recommended by the National Osteoporosis Foundation (NOF). However, all treatment decisions require clinical judgment and consideration of individual patient factors, including patient preferences, comorbidities, previous drug use, risk factors not captured in the FRAX model (e.g., frailty, falls, vitamin D deficiency, increased bone turnover, interval significant decline in bone density) and possible under or overestimation of fracture risk by FRAX. The patient should follow a healthful lifestyle (good nutrition with adequate calcium and vitamin D, and appropriate weight-bearing exercise). Follow-Up: Consider repeating this study in 2 to 3 years to reassess this patient's status, or sooner if there is some new clinical indication. Reported by: ANCELMO on 11/27/2024 12:18:00 PM. Reviewed, dictated and finalized at location A.
== END 2024-11-27 11:44 | disposition home or self-care (01) ==
LOC: CHSIMG 11:44
PROVIDERS: PCP Internal Medicine; Visit Provider Internal Medicine
DX: M85.88 Other specified disorders of bone density and structure, other site (principal)
CPT/HCPCS: 77080

== ENCOUNTER 2025-01-22 13:56 | Outpatient (CLI) | payer MEDICARE, SELFPAY ==
--- NOTE | ~2025-01-22 | US_ITS ---
EXAMINATION: US thyroid DATE: 01/22/2025 14:13 INDICATION: Thyroid nodule. TECHNIQUE: Multiple ultrasound images of the thyroid were obtained. COMPARISON: Ultrasound 03/12/2020 FINDINGS: The right thyroid lobe measures 4.6 x 2.1 x 1.4 cm. The left thyroid lobe measures 3.6 x 1.3 x 1.2 c m. In the right thyroid lobe, there is a 7 mm solid, hypoechoic, wider than tall nodule with smooth margin and macrocalcification (TI-RADS TR4). IMPRESSION: 1. Small thyroid nodule, likely not clinically significant. No follow-up is needed. Reviewed, dictated and finalized at location B. IMPRESSION: 1. Small thyroid nodule, likely not clinically significant. No follow-up is nee ded.
== END 2025-01-22 13:57 | disposition home or self-care (01) ==
LOC: GOSHIMG 13:56
PROVIDERS: PCP Internal Medicine; Visit Provider Internal Medicine
DX: E04.1 Nontoxic single thyroid nodule (principal)
CPT/HCPCS: 76536

== ENCOUNTER 2025-05-16 01:47 | Day surgery (SDC) | payer MEDICARE, SELFPAY ==
[2025-04-26 10:59] VITALS: BMI 25.5
--- OUTSIDE RECORDS SUMMARY | 2025-05-16 01:50 | XMS_ITS | Clinical Summary ---
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 Gender Identity Not on file Sexual Orientation Not on file Plan of Treatment Health Maintenance Due Date Last Done Comments DTAP/TDAP/TD VACCINES (1 - Tdap) 1969 COLORECTAL SCREENING 1995 Colorectal Cancer Screening 1995 FIT-DNA Q 3 years 1995 FIT/FOBT Q 1 year 1995 Flex Sig/CT Colonography Q 5 years 1995 PNEUMOCOCCAL VACCINE 50+ YEARS (1 of 1 - PCV) 07/04/20 00 ZOSTER VACCINE (1 of 2) 2000 INFLUENZA VACCINE (#1) 2024 RSV VACCINE (60+ or ) (1 - 1-dose 75+ series) 2025 Care Teams Tax Senior Associate Relationship Specialty Start Date End Date Adelfo Rowland MD [address] [place] [address] PCP - General 09/07/05
--- OUTSIDE RECORDS SUMMARY | 2025-05-16 01:50 | XMS_ITS | Clinical Summary ---
Author Organization [facility] Address [address] [place] [address] Care Team Providers Care Brake Machine Operator Name Role Phone Saima Sotelo MD Primary Care Provider [phone]- [phone] Allergies Active Allergy Reactions Criticality Noted Date Comments Cat Hair Standardized Allergenic Extract Rhinorrhea Low 04/04/2023 House Dust Mite Rhinorrhea Low 04/04/2023 Mold Extracts Rhinitis Low 04/04/2023 Medications omega-3 fatty acids 1,000 mg capsule take 1 by Oral route 3 times every day 0 0 07/12/20 16 Active Additional Information Patient taking differently:1,000 mgoral Every morning, Indications: Heart Health, Informant: Self, Reported on 05/03/2025 hydroCHLOROthia zide (HYDRODIURIL) 25 mg tabletIndicatio ns:hypertension Take 1 tablet (25 mg total) by mouth every morning 3 08/13/20 19 Active losartan (COZAAR) 50 mg tabletIndicatio ns:hypertension Take 1 tablet (50 mg total) by mouth every morning 10/04/20 22 Active rosuvastatin (CRESTOR) 5 mg tabletIndicatio ns:hyperlipidem ia Take 1 tablet (5 mg total) by mouth every morning 10/15/20 22 Active cholecalciferol (Vitamin D3) 400 unit capsuleIndicati ons:Prevention of Vitamin D Deficiency,Prev ent Vitamin D deficiency Take 2 tablet/capsule (800 Units total) by mouth every morning Gummies 07/15/20 22 Active fexofenadine (JOYCE) 180 mg tabletIndicatio ns:Allergic Conjunctivitis, Allergic Rhinitis Take 1 tablet (180 mg total) by mouth every morning 07/15/20 22 Active famotidine (PEPCID) 20 mg tabletIndicatio ns:gastroesopha geal reflux disease Take 1 tablet (20 mg total) by mouth 2 (two) times a day 08/15/20 23 Active testosterone 20.25 mg/1.25 gram (1.62 %) gel in metered-dose pumpIndications :Androgen Deficiency Apply 4 Pump topically ore charger before breakfast 11/23/19 24 Active EPINEPHrine 0.3 mg/0.3 mL auto-injection syringeIndicati ons:Anaphylaxis Inject 0.3 mL (0.3 mg total) into the muscle as instructed as needed for anaphylaxis Call 911 after use. 2 each 3 12/14/19 24 Active Additional Information Patient taking differently:0.3 mg intramuscular As needed, anaphylaxis,Call 911 after use. For allergy shots, Indications: Anaphylaxis, Informant: Self, Reported on 05/03/2025 zolpidem CR (AMBIEN CR) 6.25 mg CR tabletIndicatio ns:Insomnia Take 1 tablet (6.25 mg total) by mouth nightly as needed for sleep 04/11/20 25 Active aspirin 81 mg enteric coated tabletIndicatio ns:Pain Take 1 tablet (81 mg total) by mouth ore charger before breakfast Active testosterone 1.62 % (40.5 mg/2.5 gram) gel in packetIndicatio ns:Androgen Deficiency Apply 4 Pump topically every morning 5 09/19/20 18 025 Discontin ued(Alter kamlesh therapy) Cipro HC otic suspensionIndic ations:Recurren t Ear Infections Administer into the right ear 2 (two) times a day 1/2 dropperful and propels through hole in Right ear 2 times daily and prn if ear is draining more 09/01/20 22 025 Discontin ued(Thera py completed ) alendronate (FOSAMAX) 70 mg tabletIndicatio ns:Osteoporosis in Male Patient Take 1 tablet (70 mg total) by mouth every 7 days Tuesday03/30/20 025 Discontin ued(Thera py completed ) guaiFENesin (Mucinex) 1,200 mg tablet extended release 12hrIndications :Bronchial Congestion Take 1,200 mg by mouth 2 (two) times a day 04/14/20 21 025 Discontin ued(Thera py completed ) zolpidem (AMBIEN) 5 mg tabletIndicatio ns:Sleep Maintenance Insomnia-4 Hours Sleep Time Remaining,Sleep -Onset Insomnia Take 1 tablet (5 mg total) by mouth nightly as needed for sleep 08/11/20 23 025 Discontin ued(Alter kamlesh therapy) amoxicillin-cla vulanate (AUGMENTIN) 875-125 mg per tablet Take 1 tablet by mouth 2 (two) times a day 20 tablet 12/19/19 24 025 Discontin ued(Thera py completed ) methylPREDNISol one (MEDROL DOSEPACK) 4 mg Dosepack Take as directed on package 1 packet 12/19/19 24 025 Discontin ued(Thera py completed ) budesonide (Pulmicort) 0.5 mg/2 mL nebulizer solution Administer 2 mL (0.5 mg total) into each nostril daily Mix 2 ML into 240ml nasal saline and perform nasal rinse 180 mL 2 01/16/20 24 025 Discontin ued(Thera py completed ) Active Problems Patient Care Coordination No te Formatting of this note migh t be different from the original. Hearing loss Problem Noted Date Diagnosed Date Conductive hearing loss of right ear 03/12/2025 Right otitis media with spontaneous rupture of e ardrum 09/20/2023 Conductive hearing loss of r ight ear with unrestricted hearing of left ear 09/20/2023 Dizziness 10/02/2021 Assessment & Plan (10/02/2021 5:53 PM TIRE MOUNTER): Mild orthostatic intolerance without syncope. Discussed role of compression socks and hydration. 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 Incidentally, I see mild cerebellar ectopia. Consider addition of aspirin 81mg daily for secondary stroke prevention Consider addition of high potency statin (atorvastatin 40-80 mg or rosuvastatin 20-40 mg) Continued high fiber intake with plenty of fruits, vegetables Left hip pain 03/15/2018 Left knee pain 03/15/2018 Pain in the shoulder 03/15/2018 History of malignant melanoma 07/25/2017 Senile angioma 07/25/2017 Skin neoplasm 01/17/2017 Melanocytic nevus of trunk 01/17/2017 Seborrheic eczema 01/17/2017 Keratosis, senilis 01/17/2017 Angioma 01/17/2017 Allergic rhinitis due to mold 06/23/2016 Allergic rhinitis due to animal dander 6 Nasal discharge 06/10/2016 Excessive cerumen in ear canal 03/31/2016 Otitis media, purulent 08/27/2015 Perennial allergic rhinitis 08/27/2015 Perforation of ear drum 08/27/2015 Allergic rhinitis due to pollen 05/02/2013 Cyst of thyroid 01/15/2013 Neoplasm of thyroid 03/08/2011 Encounters Date Type Department Care Team Description 05/01/2025 1:30 PM CDT Clinical Support [facility] [address] [place] [address] [address] [place] [address] Allergic rhinitis due to animal hair and dander; Allergic rhinitis due to animal dander 03/27/2025 1:30 PM CDT Clinical Support [facility] [address] [place] [address] [address] [place] [address] Allergic rhinitis due to animal hair and dander; Allergic rhinitis due to animal dander 03/11/2025 1:00 PM CDT Office Visit [place] [facility] [address], [address] [place] [address] Jack Dewey MD Conductive hearing loss of right ear with unrestricted hearing of left ear (Primary Dx) 02/20/2025 1:30 PM CDT Clinical Support [facility] [address] [place] [address] [address] [place] [address] Allergic rhinitis due to animal hair and dander; Allergic rhinitis due to animal dander from Last 3 Months Surgical History Surgery Date Site/Laterality Comments TYMPANOSTOMY TUBE PLACEMENT 11/14/1987 - 11/13/1988 Right ear tubes FLUORO GUIDED ASPIRATION OR INJECTION LARGE JOINT BILATERAL 05/22/2018 Bilateral FLUORO GUIDED INJECTION SHOULDER RIGHT 11/26/2022 Right UVULECTOMY 11/14/2007 - 11/13/2008 years ago ( not sure of exact year) TONSILLECTOMY AND ADENOIDECTOMY in high school MELANOMA RESECTION 11/14/2010 - 11/13/2011 Right on his leg/ sentinal node biopsy Medical History Medical History Date Comments Malignant melanoma (HCC) Maligna nt melanoma Hypertension Hypertension Gastroesophageal reflux disease GERD Hx Other Medical varicose vein s tripping Personal history of malignan t melanoma of skin History of malignant melanom a - (Added by TW Conv) Sleep apnea Uses CPAP Family History Medical History Relation Name Comments Other Father Alive and well; Other Mother blood clot R/T hip surgery; Relation Name Status Comments Father Alive Mother Social History Tobacco Use Types Packs/Day Years Used Date Smoking Tobacco: Never Passive Smoke Exposure: Never Smokeless Tobacco: Never Tobacco Cessation:Counseling Given: Not Answered Alcohol Use Standard Drinks/Week Comments Yes 0 (1 standard drink = 0.6 oz pur e alcohol) AUDIT-C Answer Date Recorded Q1: How often do you have a drink containing alcohol? 4 or more times a week 05/03/2025 Q2: How many drinks containi ng alcohol do you have on a typical day when you are drinking? 1 or 2 Q3: How often do you have si x or more drinks on one occasion? Never 05/03/2025 Personal Safety Answer Date Recorded Have you ever been in or are you currently in a harmful physical or emotional relationship or is someone making you feel afraid or unsafe? Denies 11/22/2023 Sex and Gender Information Value Date Recorded Sex Assigned at Not on file Legal Sex Male 3:55 AM TIRE MOUNTER Gender Identity Male 2018 9:16 AM CDT Sexual Orientation Straight 06/16/2023 3: 19 PM CDT Obstetrics History Last Filed Vital Signs Vital Sign Reading Time Taken Comments Blood Pressure 149/70 11/22/2023 9:50 AM TIRE MOUNTER Pulse 85 11/22/2023 9:55 AM TIRE MOUNTER Temperature 37 C (98.6 F) 11/22/2023 9:23 AM TIRE MOUNTER Respiratory Rate 16 11/22/2023 9:55 AM TIRE MOUNTER Oxygen Saturation 95% 11/22/2023 9:55 AM TIRE MOUNTER Inhaled Oxygen Concentration - - Weight 77.1 kg (170 lb) 05/03/2025 11:10 AM CDT Height 172.7 cm (5' 8) 05/03/2025 11:10 AM CDT Body Mass Index 25.85 05/03/2025 11:10 AM CDT Plan of Treatment Upcoming Encounters Date Type Department Care Team (Late st Contact Info) Description 05/30/2025 7:30 AM CDT Hospital Encounter [facility] Surgery at [address] [address] Jack Dewey MD [address] [place] [address] 05/30/2025 7:30 AM CDT Anesthesia Event [facility] Surgery at [address] [address] Mignon Sahni, SPECIAL DISTRIBUTION CLERK [phone] [place] [address] 05/30/2025 7:30 AM CDT - 05/30/2025 8:45 AM CDT Surgery [facility] Surgery at [address] [address] Jack Dewey MD [address] [place] [address] TYMPANOSTOMY WITH VENTILATION TUBE UNILATERAL. [98026 (CPT )] Scheduled Procedures Name Priority Associated Diagnoses Date/Ti me TYMPANOSTOMY WITH VENTILATION TUBE UNILATERAL. Right otitis media with spontaneous rupture of eardrum Conductive hearing loss of right ear, unspecified hearing status on contralateral side 05/30/2025 7:30 AM CDT Health Maintenance Due Date Last Done Comments Colon Cancer Screening-Colonoscopy 1950 Depression Screening 1950 Hepatitis C Screening 1950 Hepatitis B Screening 1968 Zoster Vaccine (2 of 3) 03/02/2013 01/05/2013 Well Visit 65+ 2015 Covid-19 Vaccine (2 - 2023-2 5 season) 2024 09/04/2024 Fall Risk Assessment 11/22/2024 11/22/2023 Influenza Vaccine (#1) 2025 , 08/01/2023, 09/12/2022, Additional history exists DTaP/Tdap/Td Vaccine (2 - Td or Tdap) 07/27/2031 07/27/2021 Pneumococcal vaccine 65+ Completed 04/25/2023, 08/15 Insurance MEDICARE [employer] Address: [address] [place] [address] [employer] Care Teams Brake Machine Operator Relationship Specialty Start Date End Date Saima Sotelo MD PCP - General Internal Medicine 05/02/19
--- OUTSIDE RECORDS SUMMARY | 2025-05-16 01:50 | XMS_ITS | Referral Summary ---
Author Organization [facility] Address [address] [place] [address] Care Team Providers Care Rope Making Machine Operator Name Role Phone Saima Sotelo MD Primary Care Provider +1- [phone] Encounters Date Type Department Care Team Description 05/01/2025 1:30 PM CDT Clinical Support [facility] Allergy and Immunology [address] [place] [address] [address] [place] [address] Allergic rhinitis due to animal hair and dander; Allergic rhinitis due to animal dander 03/27/2025 1:30 PM CDT Clinical Support [facility] Allergy and Immunology [address] [place] [address] Office [address] [place] [address] Allergic rhinitis due to animal hair and dander; Allergic rhinitis due to animal dander 03/11/2025 1:00 PM CDT Office Visit [facility] Advanced Medicine ([facility]) - [facility] ENT [address] [facility] 2nd Floor, [address] [place] [address] Jack Dewey MD Conductive hearing loss of right ear with unrestricted hearing of left ear (Primary Dx) 02/20/2025 1:30 PM CDT Clinical Support [facility] Allergy and Immunology [address] [place] [address] Office [address] [place] [address] Allergic rhinitis due to animal hair and dander; Allergic rhinitis due to animal dander from Last 3 Months Allergies Active Allergy Reactions Criticality Noted Date [...] pumpIndications :Androgen Deficiency Apply 4 Pump topically social service worker before breakfast 11/23/19 24 Active EPINEPHrine 0.3 [...] 1 tablet (81 mg total) by mouth social service worker before breakfast Active testosterone 1.62 % (40.5 [...] mouth nightly as needed for sleep 08/11/20 025 Discontin ued(Alter kamlesh therapy) amoxicillin-cla vulanate [...] 180 mL 2 01/16/20 24 025 Discontin ued(Nataliya emery completed ) Active Problems Patient Care Coordination [...] 10/02/2021 Assessment & Plan (10/02/2021 5:53 PM INSPECTOR ROUGH CASTINGS): Mild orthostatic intolerance without syncope. Discussed role of compression socks and hydration. Abnormal MRI 10/02/2021 Assessment & Plan (10/02/2021 5:52 PM INSPECTOR ROUGH CASTINGS): Has evidence of small vessel disease with [...] of thyroid 01/15/2013 Neoplasm of thyroid 03/08/2011 Social History Tobacco Use Types Packs/Day Years [...] on file Legal Sex Male 3:55 AM INSPECTOR ROUGH CASTINGS Gender Identity Male 2018 9:16 AM CDT Sexual Orientation Straight 06/16/2023 3: 19 PM CDT Last Filed Vital Signs Vital Sign Reading Time Taken Comments Blood Pressure 149/70 11/22/2023 9:50 AM INSPECTOR ROUGH CASTINGS Pulse 85 11/22/2023 9:55 AM INSPECTOR ROUGH CASTINGS Temperature 37 C (98.6 F) 11/22/2023 9:23 AM INSPECTOR ROUGH CASTINGS Respiratory Rate 16 11/22/2023 9:55 AM INSPECTOR ROUGH CASTINGS Oxygen Saturation 95% 11/22/2023 9:55 AM INSPECTOR ROUGH CASTINGS Inhaled Oxygen Concentration - - Weight 77.1 kg (170 lb) 05/03/2025 11:10 AM CDT Height 172.7 cm (5' 8) 05/03/2025 11:10 AM CDT Body Mass Index 25.85 05/03/2025 11:10 AM CDT Plan of Treatment Upcoming Encounters Date Type Department Care Team (Late st Contact Info) Description 05/30/2025 7:30 AM CDT Hospital Encounter [facility] Surgery at [facility] [address] [place] [address] Jack Dewey MD [address] [place] [address] 05/30/2025 7:30 AM CDT Anesthesia Event [facility] Surgery at [facility] [address] [place] [address] Mignon Sahni NP [address] [facility] [id number] [place] [address] 05/30/2025 7:30 AM CDT - 05/30/2025 8:45 AM CDT Surgery [facility] Surgery at [facility] [address] [place] [address] Jack Dewey MD [address] [place] [address] TYMPANOSTOMY WITH VENTILATION TUBE UNILATERAL. [61467 (CPT )] Scheduled Procedures Name Priority Associated Diagnoses Date/Ti me TYMPANOSTOMY WITH VENTILATION TUBE UNILATERAL. Right otitis media with spontaneous rupture of eardrum Conductive hearing loss of right ear, unspecified hearing status on contralateral side 05/30/2025 7:30 AM CDT Insurance [facility] MEDICARE [facility] Address: [facility] [address] [place] [address] [facility] MEDICARE [facility]AGE [facility] MEDIC[facility] Address: [address] [address] [place] [address] MEDICARE FORMERLY [facility] MEDICARE AD[facility]AGE [facility] MEDIC[facility] Address: [address] [address] [place] [address] Care Teams Rope Making Machine Operator Relationship Specialty Start Date End Date Saima Sotelo MD PCP - General Internal Medicine 05/02/19
--- OUTSIDE RECORDS SUMMARY | 2025-05-16 01:50 | XMS_ITS | Encounter Summary ---
Author Organization [employer] Address 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 Gender Identity Not on file Sexual Orientation Not on file documented as of this encounter Plan of Treatment Not on file documented as of this encounter Procedures Procedure Name Priority Date/Time Associated Diagnosis Comments HEMOGLOBIN AND HEMATOCRIT Routine 09/07/2005 6:59 AM CDT BASIC METABOLIC PANEL Routine 09/07/2005 6:59 AM CDT documented in this encounter Results * (ABNORMAL) BASIC METABOLIC PANEL (09/07/2005 6:59 AM CDT) GLUCOSE 101 65 - 109 mg/dL INTERFACE SYSTEM CREATININE 1.1 0.5 - 1.3 mg/dL INTERFACE SYSTEM CALCIUM 9.3 8.6 - 10.2 mg/dL INTERFACE SYSTEM BUN 15 6 - 20 mg/dL INTERFACE SYSTEM SODIUM 141 135 - 145 mmol/L INTERFACE SYSTEM POTASSIUM 4.1 3.5 - 4.9 mmol/L INTERFACE SYSTEM CHLORIDE 103 96 - 108 mmol/L INTERFACE SYSTEM CO2 31(H) 22 - 30 mmol/L INTERFACE SYSTEM 09/07/2005 6:59 AM CDT Reinaldo Travis MD CHEMISTRY ORDERABLES Final Re sult Performing Organization Address [facility] de Phone Number INTERFACE SYSTEM Refer to clinic/hospital department * (ABNORMAL) HEMOGLOBIN AND HEMATOCRIT (09/07/2005 6:59 AM CDT) HEMOGLOBIN 16.6(H) 13.6 - 16.5 g/dL INTERFACE SYSTEM HEMATOCRIT 48.3(H) 40.0 - 48.0 % INTERFACE SYSTEM 09/07/2005 6:59 AM CDT Reinaldo Travis MD HEMATOLOGY ORDERABLES Final R esult Performing Organization Address [facility] Phone Number INTERFACE SYSTEM Refer to clinic/hospital department documented in this encounter Visit Diagnoses Diagnosis Obstructive sleep apnea (adult) (pediatric)- Primary documented in this encounter Care Teams Food And Nutrition Services Supervisor Relationship Specialty Start Date End Date Adelfo Rowland MD [address] [place] [address] PCP - General 09/07/05 documented as of this encounter
--- OUTSIDE RECORDS SUMMARY | 2025-05-16 01:50 | XMS_ITS | Encounter Summary ---
Author Organization [facility] Address [address] [place] [address] Phone Care Team Providers Care Reel Stripper Name Role Phone Saima Sotelo MD Primary Care Provider +1- [phone] Encounter Details Date Type Department Care Team (Latest Contact Info) Description 04/21/2021 Orders Only [facility] Scanning, Provider Social History Tobacco Use Types Packs/Day Years Used Date Smoking Tobacco: Never Smokeless Tobacco: Never Alcohol Use Standard Drinks/Week Comments Yes 0 (1 standard drink = 0.6 oz pur e alcohol) Sex and Gender Information Value Date Recorded Sex Assigned at Not on file Legal Sex Male 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 Gender Identity Male 2018 9:16 AM CDT Sexual Orientation Straight 06/16/2023 3: 19 PM CDT documented as of this encounter Plan of Treatment Upcoming Encounters Date Type Department Care Team (Late st Contact Info) Description 05/30/2025 7:30 AM CDT Hospital Encounter [facility] Surgery at [address] [address] Jack Dewey MD [address] [place] [address] 05/30/2025 7:30 AM CDT Anesthesia Event [facility] Surgery at [facility] [address] [place] [address] Mignon Sahin NP [address] [facility] [phone] [place] [address] 05/30/2025 7:30 AM CDT - 05/30/2025 8:45 AM CDT Surgery [facility] at [facility] [address] [place] [address] Jack Dewey MD [address] [place] [address] TYMPANOSTOMY WITH VENTILATION TUBE UNILATERAL. [88430 (CPT )] Scheduled Procedures Name Priority Associated Diagnoses Date/Ti me TYMPANOSTOMY WITH VENTILATION TUBE UNILATERAL. Right otitis media with spontaneous rupture of eardrum Conductive hearing loss of right ear, unspecified hearing status on contralateral side 05/30/2025 7:30 AM CDT documented as of this encounter Procedures Procedure Name Priority Date/Time Associated Diagnosis Comments SCAN - LABS 04/21/2021 documented in this encounter Results * SCAN - LABS (04/21/2021) us Provider Scanning Final Result documented in this encounter Visit Diagnoses Not on filedocumented in this encounter Care Teams Reel Stripper Relationship Specialty Start Date End Date Saima Sotelo MD PCP - General Internal Medicine 05/02/19 documented as of this encounter
[2025-05-16 10:22] VITALS: BP 157/82; PULSE 68; RESP 18; TEMP 36.3; O2SAT 100
[2025-05-16] MEDS: LACTATED RINGERS 1,000 ML 150 ML IV CONT (10:32)
[2025-05-16 10:47] VITALS: BP 130/76; PULSE 57; RESP 17; O2SAT 100
--- NOTE | 2025-05-16 10:59 | PM.IMHP ---
H&P: HPI History of Present Illness Date/Time: 05/16/25 10:59 Chief Complaint: Positive Cologuard test Narrative: This is the patient's 2nd colonoscopy after 20 years. He has been following with yearly Cologuard but this time it came back positive. There are no GI symptoms and there is no family history of colorectal cancer. Review of Systems Review of Systems: All systems reviewed & are unremarkable except as noted in HPI and below PMFSH Past Medical History Medical History Benign essential hypertension BPH (benign prostatic hyperplasia) HTN (hypertension) Hypercholesterolemia JENNIFER (obstructive sleep apnea) PVCs (premature ventricular contractions) Surgical History Surgical History (Updated 05/16/25 @ 11:00 by Reinaldo Biggs MD) S/P UPPP (uvulopalatopharyngoplasty) Family History Family History Mother Hypertension Father Hypertension Malignant neoplasm of prostate Social History Social History (Updated 06/30/22 @ 10:45 by Alysha Galicia MA) Smoking status: Never smoker Second hand tobacco smoke exposure: Yes Alcohol intake: current Drinks per week: 6 Substance use: never Substance use type: does not use Living arrangements: with family Additional living arrangements comments: Spiritual care concerns: No Meds Home Medications and Allergies Home Medications ?Medication ?Instructions ?Recorded ?Confirmed ?Type calcium carbonate (Calcium 500) 1,000 mg PO DAILY 04/07/22 05/16/25 History guaifenesin 1,200 mg 1,200 mg PO BID 04/07/22 05/16/25 History tablet,extended release,12 hr hydrochlorothiazide 25 mg tablet 25 mg PO QAM 04/07/22 05/16/25 History magnesium 250 mg tablet 250 mg PO DAILY 04/07/22 05/16/25 History omega-3 fatty acids-vitamin E 2 cap PO QAM 04/07/22 05/16/25 History 1,000 mg capsule rosuvastatin 5 mg tablet 5 mg PO HS 04/07/22 05/16/25 History testosterone 4 pump topical DAILY 04/07/22 05/16/25 History losartan 50 mg tablet 50 mg PO DAILY #60 tabs 06/20/22 07/03/25 Rx famotidine 20 mg tablet 20 mg PO BID 04/26/25 05/16/25 History zolpidem 6.25 mg tablet,extended 6.25 mg PO HS PRN sleep 04/26/25 04/26/25 History release,multiphase Allergies Allergy/AdvReac Type Severity Reaction Status Date / Time No Known Allergies Allergy Verified 05/16/25 10:20 Vital Signs Vital Signs - 24 hr 05/16/25 10:22 Temperature 97.4 F L Pulse Rate 68 Respiratory Rate 18 Blood Pressure 157/82 H Pulse Oximetry 100 Oxygen Delivery Room Air Exam Const: General: cooperative and healthy appearing Resp: Effort & Inspection: normal respiratory effort and able to speak in complete sentences Auscultation: clear to auscultation bilaterally Cardio: Rate: regular rate Rhythm: regular rhythm GI: Inspection: normal to inspection GI Palp: No No hepatosplenomegaly present Auscultation: normal bowel sounds Rectal Exam: deferred Skin: General skin exam: normal color Psych: Appearance: grossly normal Mental Status: mental status grossly normal Assessment and Plan Assessment and plan (1) Positive colorectal cancer screening using Cologuard test: Code(s): R19.5 - Other fecal abnormalities Status: Acute Assessment and Plan: The patient is deemed a good candidate for the procedure. Consent signed. Will proceed.
--- NOTE | 2025-05-16 11:00 | WPDANESEPPF ---
Anes - Initial Pre Proc Eval Procedure: Operation Date: 05/16/25 11:30 Proposed Procedures p Colonoscopy - Jorge Tapia MD Date/Time: 05/16/25 11:00 Surgeon: Jorge Tapia MD Pre Op Diagnosis: Other fecal abnormalities Patient Data Age: 74 Gender: M Height: 1.73 m Weight: 75.9 kg Last Vital Signs Temp 36.3 C L 05/16/25 10:22 Pulse 68 05/16/25 10:22 Resp 18 05/16/25 10:22 BP 157/82 H 05/16/25 10:22 Pulse Ox 100 05/16/25 10:22 O2 Del Method Room Air 05/16/25 10:22 Allergies Allergy/AdvReac Type Severity Reaction Status Date / Time No Known Allergies Allergy Verified 05/16/25 10:20 Home Medications ?Medication ?Instructions ?Recorded ?Confirmed ?Type calcium carbonate (Calcium 500) 1,000 mg PO DAILY 04/07/22 05/16/25 History guaifenesin 1,200 mg 1,200 mg PO BID 04/07/22 05/16/25 History tablet,extended release,12 hr hydrochlorothiazide 25 mg tablet 25 mg PO QAM 04/07/22 05/16/25 History magnesium 250 mg tablet 250 mg PO DAILY 04/07/22 05/16/25 History omega-3 fatty acids-vitamin E 2 cap PO QAM 04/07/22 05/16/25 History 1,000 mg capsule rosuvastatin 5 mg tablet 5 mg PO HS 04/07/22 05/16/25 History testosterone 4 pump topical DAILY 04/07/22 05/16/25 History losartan 50 mg tablet 50 mg PO DAILY #60 tabs 05/03/22 05/16/25 Rx famotidine 20 mg tablet 20 mg PO BID 04/26/25 05/16/25 History zolpidem 6.25 mg tablet,extended 6.25 mg PO HS PRN sleep 04/26/25 04/26/25 History release,multiphase Patient hx anesthesia problems: none Family hx anesthesia problems: none Results Review: All pre-operative results and documents have been reviewed as part of the pre-operative evaluation. [facility] Past Medical History Medical History PVCs (premature ventricular contractions) Benign essential hypertension BPH (benign prostatic hyperplasia) JENNIFER (obstructive sleep apnea) HTN (hypertension) Hypercholesterolemia Surgical History Surgical History (Updated 05/16/25 @ 11:00 by Reinaldo Biggs MD) S/P UPPP (uvulopalatopharyngoplasty) Family History Family History Mother Hypertension Father Hypertension Malignant neoplasm of prostate Social History Social History Smoking status: Never smoker Second hand tobacco smoke exposure: Yes Alcohol intake: current Drinks per week: 6 Substance use: never Substance use type: does not use Living arrangements: with family Additional living arrangements comments: Spiritual care concerns: No Anes - Eval Final PreProcedure Day of Procedure 05/16/25 11:00 Patient weight: normal Heart: regular rate and rhythm Lungs: clear to auscultation Airway: Mallampati scale class III and special considerations poor opening Neurological: alert and oriented Last oral intake: >/= 8 hours ASA classification: III Emergent: no Anesthetic plan: proceed Anesthesia type and monitoring: general GIVS and standard monitoring Results Review: All pre-operative results and documents have been reviewed as part of the pre-operative evaluation. Informed Consent: The patient's anesthetic plan and its attendant risks and benefits were discussed with the patient/family/POA. Questions were solicited and answers provided to the satisfaction of the patient/family/POA.
[2025-05-16 11:27] VITALS: BP 121/66; PULSE 64; RESP 18; O2SAT 100
--- NOTE | 2025-05-16 11:27 | S_PTH ---
PATIENT: Uziel Haji LOC: [facility] U#:[id number] AGE/SX: 74/M ROOM: RE05/16/[address]: Jorge Tapia MD : 1950 BED: DIS: 05/16/2025 SPEC #: [id number] RECD: 05/16/25 12:55 STATUS: YASIR REQ #: [id number] LEOBARDO: 05/16/25 11:[address]: Jorge Tapia DEPT: [facility] Surgical RECD BY: Donna Moe ENTERED: 05/16/25 12:56 SP TYPE: Surgical OTHR DR: Saima Sotelo MD Tissues: A - Colon Polypectomy Procedures: Hematoxylin and Eosin Stain Gross and Microscopic Level 4
[2025-05-16 11:37] VITALS: BP 116/65; PULSE 61; RESP 19; O2SAT 100
== END 2025-05-16 11:57 | disposition home or self-care (01) ==
PROVIDERS: PCP Internal Medicine; Referring Provider Internal Medicine; Visit Provider Internal Medicine Gastroenterology
PROC: 0DJD8ZZ Inspection of Lower Intestinal Tract, Via Natural or Artificial Opening Endoscopic (ICD-10-PCS; CPT 45378; principal; 2025-05-16 11:30)
DX: R19.5 Other fecal abnormalities (principal); D12.3 Benign neoplasm of transverse colon; K64.8 Other hemorrhoids
CPT/HCPCS: 45385; 88305; J2003; J2704; J7120